=== PATIENT | female | born 1955 | race Caucasian/White ===

== ENCOUNTER 2016-06-09 06:02 | Observation (INO) | payer MEDICAID ==
[~2016-06-09] VITALS: Ht 160 cm; Wt 65.8 kg
[~2016-06-09 06:02] MED LIST: ALPR.5T PO; CYCL10TA9 PO; HYDR-3714 PO; NAPR-243 PO; NAPR500T PO; SULF-222 PO
[2016-06-09] MEDS ORDERED: ONDANSETRON 4 MG (ZOFRAN) ORAL DISSOLVE TAB SL ONE (06:15)
[2016-06-09] MEDS ORDERED: ANTACID SUSP 30 ML UDC (MYLANTA) PO ONE (06:15)
[2016-06-09] MEDS ORDERED: LIDOCAINE 2% VISCOUS 15 ML UDC PO ONE (06:15)
[2016-06-09] MEDS ORDERED: NS IV 1000 ML 1,000 ML IV ONE (06:47)
[2016-06-09] MEDS ORDERED: FAMOTIDINE 20MG/2ML IV (PEPCID) IVP ONE (07:00)
[2016-06-09 07:17] LABS: BILIRUBIN,URINE NEGATIVE (NEGATIVE); KETONES,URINE NEGATIVE (NEGATIVE); LEUKOCYTE ESTERASE ,URINE 1+ (NEGATIVE); NITRITE,URINE NEGATIVE (NEGATIVE); PH,URINE 5 (5-9); PROTEIN,URINE NEGATIVE (NEGATIVE); UROBILINOGEN,URINE NORMAL (NORMAL)
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
[2016-06-09 07:19] LABS: WBC,URINE 0-2 /HPF
[2016-06-09 07:49] LABS: BASOPHILS % (AUTO) 0 % (0-10); EOSINOPHILS % (AUTO) 0 % (0-10); LYMPHOCYTES # (AUTO) 2.2 X 10^3 (1.0-4.0); LYMPHOCYTES % (AUTO) 17 % (12-44); MEAN CORPUSCULAR HEMOGLOBIN 31 PG (25-34); MEAN CORPUSCULAR HGB CONC 35 G/DL (32-36); MEAN CORPUSCULAR VOLUME 91 FL (80-99); MONOCYTES # (AUTO) 0.7 X 10^3 (0.0-1.0); MONOCYTES % (AUTO) 5 % (0-12); NEUTROPHILS # (AUTO) 9.6 X 10^3 (1.8-7.8); NEUTROPHILS % (AUTO) 77 % (42-75); PLATELET COUNT 196 10^3/uL (130-400); RED BLOOD COUNT 4.34 10^6/uL (4.35-5.85); RED CELL DISTRIBUTION WIDTH 12.1 % (10.0-14.5); WHITE BLOOD COUNT 12.5 10^3/uL (4.3-11.0)
[2016-06-09 08:10] LABS: ALANINE AMINOTRANSFERASE 24 U/L (0-55); ANION GAP 10 MMOL/L (5-14); ASPARTATE AMINO TRANSFERASE 46 U/L (5-34); BILIRUBIN,TOTAL 0.4 MG/DL (0.1-1.0); BLOOD UREA NITROGEN 15 MG/DL (7-18); BUN/CREATININE RATIO 20; CALCIUM 8.6 MG/DL (8.5-10.1); CARBON DIOXIDE 20 MMOL/L (21-32); CHLORIDE 108 MMOL/L (98-107); CREATININE SERUM 0.75 MG/DL (0.60-1.30); GFR ESTIMATED > 60; GLUCOSE 102 MG/DL (70-105); LIPASE 944 U/L (8-78); POTASSIUM 3.7 MMOL/L (3.6-5.0); SODIUM 138 MMOL/L (135-145); TOTAL PROTEIN 6.2 G/DL (6.4-8.2)
[2016-06-09] MEDS ORDERED: fentaNYL INJECTION 100 MCG/2 ML AMP ONE (08:26)
[2016-06-09] MEDS ORDERED: NS 100 ML (IVPB) BAG IV ONE (08:30)
[2016-06-09] MEDS ORDERED: IOHEXOL 350 MG/ML 100 ML (OMNIPAQUE 350) VIAL IV ONE (08:30)
[2016-06-09] MEDS ORDERED: AZITHROMYCIN 250 MG TAB (ZITHROMAX) PO ONE (08:45)
[2016-06-09] MEDS ORDERED: cefTRIAXone INJECTION 1,000 MG in NORMAL SALINE (BAXTER MINI) 50 ML IV ONE (08:45)
[2016-06-09] MEDS ORDERED: fentaNYL INJECTION 100 MCG/2 ML AMP IVP ONE (08:45)
--- NOTE | 2016-06-09 09:08 | Diagnostic Imaging Report ---
PROCEDURE: CT abdomen and pelvis with contrast. TECHNIQUE: Multiple contiguous axial images were obtained through the abdomen and pelvis after administration of intravenous contrast. INDICATION: Upper abdominal pain, vomiting. 100 mL of Omnipaque 350 is administered intravenously. Comparison exam from 07/02/2014, is reviewed. FINDINGS: The lung bases demonstrate emphysema changes. There is mild/ moderate intrahepatic and extrahepatic biliary dilatation similar to June 2014 exam. The CBD is up to 1.3 cm in caliber. The pancreatic duct is minimally prominent. There is no obstructive lesion identified. The liver parenchyma demonstrates mild heterogeneity with scattered tiny cystic lesions seen. There is no solid mass identified. The spleen is not enlarged. The adrenal glands appear unremarkable. The gallbladder is not seen, possibly contracted or related to cholecystectomy. Correlate with surgical history. The kidneys have symmetric enhancement and contrast excretion. There is no hydronephrosis. There is a 1-cm simple cyst in the upper pole of the left kidney. There is a nonobstructive stone measuring 7 mm in the lower pole of the left kidney. The abdominal aorta is normal in caliber. No para-aortic significantly enlarged lymph node is seen. The appendix is normal. There is no bowel obstruction. The uterus and adnexa appear grossly unremarkable. No significant free fluid or fluid collection in the abdomen or pelvis seen. The osseous structures appear grossly unremarkable. IMPRESSION: 1. Chronic mild/ moderate dilatation of the intrahepatic and extrahepatic bile ducts with no obvious obstructive lesion seen, unchanged from June 2014 exam. 2. Nonobstructive 7-mm lower pole left kidney stone. Dictated by: Dictated on workstation # [id number]
[2016-06-09 10:10] VITALS: BP 118/72
[2016-06-09] MEDS ORDERED: CATHETER FLUSH 10 ML SYR IV PRN (10:45)
[2016-06-09] MEDS ORDERED: ONDANSETRON 4 MG/2 ML (SDV) Z0FRAN IV PRN (10:45)
[2016-06-09] MEDS: D5 1/2 NS W/KCL 20 MEQ/L 1,000 ML IV SCH ×2 (11:05→21:15)
[2016-06-09] MEDS ORDERED: ASPI-983 PO (11:18)
[2016-06-09] MEDS ORDERED: CHOL2000 PO (11:18)
[2016-06-09 12:05] VITALS: BP 115/86
[2016-06-09] MEDS: fentaNYL INJECTION 100 MCG/2 ML AMP IV PRN ×2 (12:20→21:16)
[2016-06-09] MEDS ORDERED: FLU TRIvalent (5 YOA+) 2016-17 (AFLURIA) 0.5 ML IM ONE (15:45)
[2016-06-09 17:20] VITALS: BP 101/54
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
[2016-06-09] MEDS ORDERED: ENOXAPARIN 40 MG/0.4 ML (LOVENOX) SYR SC SCH (18:45)
[2016-06-09 20:15] VITALS: BP 99/60
[2016-06-09] MEDS: FAMOTIDINE 20MG/2ML IV (PEPCID) IV SCH (20:20)
[2016-06-10] VITALS: BP 90/50
[2016-06-10] MEDS: fentaNYL INJECTION 100 MCG/2 ML AMP IV PRN (03:30)
[2016-06-10 04:00] VITALS: BP 106/58
[2016-06-10 05:06] LABS: BASOPHILS % (AUTO) 0 % (0-10); EOSINOPHILS # (AUTO) 0.1 10^3/uL (0.0-0.3); EOSINOPHILS % (AUTO) 1 % (0-10); LYMPHOCYTES # (AUTO) 2.8 X 10^3 (1.0-4.0); LYMPHOCYTES % (AUTO) 59 % (12-44); MEAN CORPUSCULAR HEMOGLOBIN 31 PG (25-34); MEAN CORPUSCULAR HGB CONC 34 G/DL (32-36); MEAN CORPUSCULAR VOLUME 93 FL (80-99); MEAN PLATELET VOLUME 11.3 FL (7.4-10.4); MONOCYTES # (AUTO) 0.3 X 10^3 (0.0-1.0); MONOCYTES % (AUTO) 5 % (0-12); NEUTROPHILS # (AUTO) 1.6 X 10^3 (1.8-7.8); NEUTROPHILS % (AUTO) 34 % (42-75); PLATELET COUNT 184 10^3/uL (130-400); RED CELL DISTRIBUTION WIDTH 12.3 % (10.0-14.5); WHITE BLOOD COUNT 4.8 10^3/uL (4.3-11.0)
[2016-06-10 05:33] LABS: ALANINE AMINOTRANSFERASE 24 U/L (0-55); ALBUMIN 3.6 G/DL (3.2-4.5); ANION GAP 9 MMOL/L (5-14); ASPARTATE AMINO TRANSFERASE 22 U/L (5-34); BILIRUBIN,TOTAL 0.4 MG/DL (0.1-1.0); BLOOD UREA NITROGEN 8 MG/DL (7-18); BUN/CREATININE RATIO 11; CALCIUM 8.5 MG/DL (8.5-10.1); CARBON DIOXIDE 21 MMOL/L (21-32); CHLORIDE 110 MMOL/L (98-107); CREATININE SERUM 0.72 MG/DL (0.60-1.30); GFR ESTIMATED > 60; GLUCOSE 110 MG/DL (70-105); LIPASE 49 U/L (8-78); SODIUM 140 MMOL/L (135-145); TOTAL PROTEIN 5.7 G/DL (6.4-8.2)
[2016-06-10] MEDS: D5 1/2 NS W/KCL 20 MEQ/L 1,000 ML IV SCH (07:51)
[2016-06-10 08:00] VITALS: BP 93/56
--- NOTE | 2016-06-10 08:19 | Progress Note (SOAP) ---
Subjective Subjective/Events-last exam acute pancreatitis. Nausea and vomiting. Lipase normal. Leukocytosis better. Patient feels 50 percent better. Patient ready to eat. To start with clear liquids. May discharge today Objective Exam Vital Signs Date Time Temp Pulse Resp B/P Pulse Ox O2 Delivery O2 Flow Rate FiO2 06/10/16 04:00 97.7 54 14 106/58 97 Room Air 06/10/16 00:00 96.8 56 16 90/50 97 Room Air 06/09/16 20:15 97.5 60 18 99/60 99 Room Air 06/09/16 17:20 98.3 56 18 101/54 97 Room Air 06/09/16 13:00 97.5 06/09/16 12:20 97.5 06/09/16 12:05 97.6 68 20 115/86 97 Room Air 06/09/16 10:50 97 Room Air 06/09/16 10:10 97.5 60 18 118/72 94 Room Air 06/09/16 10:00 98.2 66 16 99 06/09/16 08:38 98.2 06/09/16 08:36 98.2 I & O 06/10/16 07:00 Intake Total 1000 ml Output Total 800 ml Balance 200 ml Capillary Refill : Less Than 3 Seconds General Appearance: No Apparent Distress WD/WN HEENT: Normal ENT Inspection Neck: Normal Inspection Non Tender Respiratory: Chest Non Tender Normal Breath Sounds No Accessory Muscle Use No Respiratory Distress Cardiovascular: Regular Rate, Rhythm No Murmur Gastrointestinal: non tender soft Results Lab Laboratory Tests 06/10/16 04:43: Alanine Aminotransferase (ALT/SGPT) 24, Albumin 3.6, Alkaline Phosphatase 62, Anion Gap 9, Aspartate Amino Transf (AST/SGOT) 22, BUN/Creatinine Ratio 11, Basophils # (Auto) 0.0, Basophils (%) (Auto) 0, Blood Urea Nitrogen 8, Calcium Level 8.5, Carbon Dioxide Level 21, Chloride Level 110H, Creatinine 0.72, Eosinophils # (Auto) 0.1, Eosinophils (%) (Auto) 1, Estimat Glomerular Filtration Rate > 60, Glucose Level 110H, Hematocrit 37, Hemoglobin 12.5, Lipase 49, Lymphocytes # (Auto) 2.8, Lymphocytes (%) (Auto) 59H, Mean Corpuscular Hemoglobin 31, Mean Corpuscular Hemoglobin Concent 34, Mean Corpuscular Volume 93, Mean Platelet Volume 11.3H, Monocytes # (Auto) 0.3, Monocytes (%) (Auto) 5, Neutrophils # (Auto) 1.6L, Neutrophils (%) (Auto) 34L, Platelet Count 184, Potassium Level 4.0, Red Blood Count 4.00L, Red Cell Distribution Width 12.3, Sodium Level 140, Total Bilirubin 0.4, Total Protein 5.7L, White Blood Count 4.8 Microbiology 06/09/16 Genital Culture, Resulted Pending 06/09/16 FARAZ Preparation - Final, Resulted 06/09/16 Wet Prep - Final, Resulted Assessment/Plan Assessment/Plan Assess & Plan/Chief Complaint acute pancreatitis. Lipase normal this morning. Patient not having nausea and vomiting this morning. Leukocytosis better. Patient feels 50 percent better. Patient ready to eat. To monitor may discharge today Diagnosis/Problems: Clinical Quality Measures DVT/VTE Risk/Contraindication: Risk Factor Score Per Nursin RFS Level Per Nursing on Admit: 2=Moderate PUNEET DAY DO Jun 10, 2016 08:19
[2016-06-10] MEDS: FAMOTIDINE 20MG/2ML IV (PEPCID) IV SCH (09:09)
[2016-06-10 12:00] VITALS: BP 104/67
--- NOTE | 2016-06-12 07:14 | Clinic Account Progress/Dx ---
Clinic Account Progress/Dx DIAGNOSIS: Diagnosis acute pancreatitis. Gardnerella vaginalis PUNEET DAY DO Jun 12, 2016 07:14
--- NOTE | 2016-06-15 17:23 | Clinic Account Progress/Dx ---
Clinic Account Progress/Dx DIAGNOSIS: Diagnosis ACUTE PANCREATITIS. Bacterial vaginosis. Called patient and put on Flagyl. Nicotine dependence. Left ear pain PUNEET DAY DO Jun 15, 2016 17:23
== END 2016-06-10 16:54 | disposition home or self-care (01) ==
LOC: EDUNIT# 06:02 → ER 06:05 → 4TH 09:53 → UNDOADMOB 09:53 → 4TH 10:50 → UNDODISOB 06-10 17:34
PROVIDERS: ADMIT Family Medicine; ATTEND Family Medicine
DX: K85.90 Acute pancreatitis without necrosis or infection, unspecified (principal); N76.0 Acute vaginitis; B96.89 Other specified bacterial agents as the cause of diseases classified elsewhere; H66.42 Suppurative otitis media, unspecified, left ear; F17.210 Nicotine dependence, cigarettes, uncomplicated
CPT/HCPCS: 36415; 74177; 80053; 81000; 83690; 85025; 87070; 87210; 87491; 87591; 96361; 96365; 96375; G0378

== ENCOUNTER → 2017-06-15 | Outpatient (CLI) | payer MEDICAID ==
[~2017-06-15] MED LIST changes: +ASPI-983 PO; +CHOL2000 PO; +NAPR-1071 PO; -NAPR500T PO
--- NOTE | 2017-06-15 12:19 | Diagnostic Imaging Report ---
INDICATION: Lump in the left lower back. Sonographic interrogation of the area of lump was performed. There is an area of hypoechogenicity which is ovoid in appearance measuring 3.3 x 0.5 x 2.4 cm. No internal vascularity is seen. This is nonspecific but could potentially represent a lipoma. No fluid collection is seen. IMPRESSION: Nonspecific mass at the area of palpable abnormality, perhaps a lipoma. Continued close followup to confirm stability is recommended. Dictated by: Dictated on workstation # [id number]
--- NOTE | 2017-06-15 16:24 | Diagnostic Imaging Report ---
INDICATION: Routine screening. COMPARISON: 09/27/2008. TECHNIQUE: Screening digital mammography was performed bilaterally with a Computer Aided Detection (CAD) system. FINDINGS: Both breasts remain heterogeneously dense, limiting the sensitivity of mammography. No dominant mass or malignant appearing microcalcifications are seen. The axillae are unremarkable. IMPRESSION: No mammographic features suspicious for malignancy are identified. ACR BI-RADS Category 1: Negative. Result letter will be mailed to the patient. Note: At least 10% of breast cancer is not imaged by mammography. Dictated by: Dictated on workstation # [id number]
== END ==
LOC: RAD 11:32
PROVIDERS: ATTEND Family Medicine
DX: Z12.31 Encounter for screening mammogram for malignant neoplasm of breast (principal); R22.2 Localized swelling, mass and lump, trunk
CPT/HCPCS: 76999; 77067